=== PATIENT | male | born 1945 | race Caucasian/White ===

== ENCOUNTER 2020-07-06 06:16 | Day surgery (SDC) | payer MEDICARE ==
[2020-07-05 11:30] VITALS: BMI 29.4
[2020-07-06 08:06] LABS: SARS-CoV-2 NAA Rapid Test Not Detected (NotDetected)
[2020-07-06] MEDS ORDERED: Midazolam HCl 2 mg/2 ml Vial ONE (08:09)
[2020-07-06] MEDS ORDERED: Fentanyl 100 MCG/2 ML VIAL ONE (08:09)
[2020-07-06] MEDS ORDERED: Levofloxacin 500 mg/D5W 100 ml Premix Bag ONE (08:16)
--- NOTE | 2020-07-06 09:17 | OP ---
DATE OF PROCEDURE: 07/06/2020 PREOPERATIVE DIAGNOSIS: Lower urinary tract symptoms due to enlarged prostate. POSTOPERATIVE DIAGNOSIS: Lower urinary tract symptoms due to enlarged prostate. PROCEDURE PERFORMED: UroLift utilizing 7 implants. ANESTHESIA: TIVA. COMPLICATIONS: None. ESTIMATED BLOOD LOSS: Minimal. SPECIMEN: None. DESCRIPTION OF PROCEDURE: After informed consent, the patient was taken to the operating room, transferred to the table under his own power. Anesthesia was established. A time-out was performed, showing the correct patient, site, and procedure. Preoperative antibiotics were administered. He was prepped and draped in the lithotomy position. I began by inserting the 20-Thai cystoscope through the urethra noting normal course and caliber of the urethra, into the prostate noting coapting lateral lobes with no significant bladder and neck obstruction. The bladder was entered and systematically examined, noting no mucosal abnormalities. He does have severe trabeculation with end-stage appearance to his bladder. There were no large diverticula. Both ureters were normal in appearance. I began by deploying implants at the bladder neck, left and right. I then proceeded to deploy 2 implants at the verumontanum. He had persistent obstruction at the bladder neck and so, 2 further implants were placed, stacking with the previously placed implants and finally, there was still persistent obstruction in the mid prostate on the right side and so an implant was placed at this location. Total number of implants utilized 7. He was then awoken from anesthesia, transferred back to his hospital bed and taken to PACU in stable condition, where he will undergo a void trial and discharged to home upon recovery. Job ID: [id number]
[2020-07-06] MEDS ORDERED: PROPOFOL 200 MG/20 ML VIAL ONE (09:44)
[2020-07-06] MEDS ORDERED: PHENYLEPHRINE-NS 100 MCG/ML 10 ML SYRINGE ONE (09:44)
[2020-07-06] MEDS ORDERED: Phenazopyridine HCl 100 MG TAB ONE ×2 (10:29→10:32)
[2020-07-06] MEDS ORDERED: Oxybutynin 5 MG TAB ONE ×2 (10:29→10:32)
[2020-07-06] MEDS ORDERED: Ketorolac Tromethamine 30 MG/ML VIAL ONE (10:29)
== END 2020-07-06 12:15 | disposition home or self-care (01) ==
LOC: SDC 06:16
PROVIDERS: ATTEND Urology
PROC: 0T7D8DZ Dilation of Urethra with Intraluminal Device, Via Natural or Artificial Opening Endoscopic (ICD-10-PCS; principal; 2020-07-06)
DX: N40.1 Benign prostatic hyperplasia with lower urinary tract symptoms (principal); N13.8 Other obstructive and reflux uropathy; N32.89 Other specified disorders of bladder; M19.90 Unspecified osteoarthritis, unspecified site; E78.00 Pure hypercholesterolemia, unspecified; I10 Essential (primary) hypertension; G47.30 Sleep apnea, unspecified; I25.10 Atherosclerotic heart disease of native coronary artery without angina pectoris; E78.5 Hyperlipidemia, unspecified; K22.70 Barrett's esophagus without dysplasia; K21.9 Gastro-esophageal reflux disease without esophagitis; Z79.01 Long term (current) use of anticoagulants; Z79.82 Long term (current) use of aspirin; Z79.899 Other long term (current) drug therapy; Z88.6 Allergy status to analgesic agent; Z95.0 Presence of cardiac pacemaker; Z20.822 Contact with and (suspected) exposure to COVID-19
CPT/HCPCS: C9740; U0002; J1885; J1956; J2250; J2704; J3010; L8699

== ENCOUNTER 2022-05-22 19:14 | Inpatient (IN) | payer MEDICARE, OTHER ==
[2022-05-22 20:25] VITALS: BMI 30.3
[2022-05-22] MEDS ORDERED: Acetaminophen 325 MG TAB PO PRN (20:41)
[2022-05-22] MEDS ORDERED: Apixaban 2.5 MG TAB PO SCH (21:15)
[2022-05-22 21:17] LABS: SARS-CoV-2 NAA Rapid Test Not Detected (NotDetected)
[2022-05-22] MEDS ORDERED: Atorvastatin Calcium 40 MG TAB PO SCH (21:30)
[2022-05-22] MEDS ORDERED: Acetaminophen 325 MG TAB ONE (21:50)
[2022-05-23 07:10] LABS: Hemoglobin A1c 5.5 % (4.0-6.0)
[2022-05-23 07:27] LABS: Anion Gap 9 mmol/L (10-20); BUN (Urea Nitrogen) 21 mg/dL (8.4-25.7); Calc. Creatinine Clearance 66 mL/min (70-130); Calcium 8.9 mg/dL (7.8-10.44); Carbon Dioxide 26 mmol/L (23-31); Chloride 109 mmol/L (98-107); Cholesterol 100 mg/dl (< 200 Desired); Estimated GFR 60; Glucose 92 mg/dL (83-110); HDL Cholesterol 33 mg/dL (>60 Neg Risk); LDL Cholesterol, Calculated 51 mg/dL; Sodium 140 mmol/L (136-145); Triglycerides 82 mg/dL (Less than 150)
[2022-05-23] MEDS: Apixaban 2.5 MG TAB PO SCH ×2 (08:48→21:05)
[2022-05-23] MEDS: Aspirin Chewable 81 MG TAB PO SCH (08:48)
[2022-05-23] MEDS: Citalopram 20 MG TAB PO SCH (08:49)
[2022-05-23] MEDS: Multivit, Therapeutic 1 TAB PO SCH (08:49)
[2022-05-23] MEDS ORDERED: Aspirin Chewable 81 MG TAB ONE (08:51)
[2022-05-23] MEDS ORDERED: Latanoprost 0.005% Ophth Soln 2.5 ml Bottle EA EYE SCH (21:00)
[2022-05-23] MEDS ORDERED: Atorvastatin Calcium 40 MG TAB PO SCH (21:00)
[2022-05-24] MEDS ORDERED: Non-Formulary Item 1 EACH (Midodrine [Midodrine] 10 MG Tab) PO SCH (09:00)
[2022-05-24] MEDS ORDERED: Midodrine HCl 5 MG TAB PO SCH ×2 (09:15→15:00)
[2022-05-24] MEDS ORDERED: Aspirin Chewable 81 MG TAB ONE (09:26)
[2022-05-24] MEDS: Apixaban 2.5 MG TAB PO SCH (09:34)
[2022-05-24] MEDS: Aspirin Chewable 81 MG TAB PO SCH (09:35)
[2022-05-24] MEDS: Citalopram 20 MG TAB PO SCH (09:35)
[2022-05-24] MEDS: Multivit, Therapeutic 1 TAB PO SCH (09:36)
[2022-05-24 16:07] VITALS: BP 158/106; TEMP 98
[2022-05-25] MEDS ORDERED: Ferrous Sulfate 325 MG TAB PO SCH (08:00)
[2022-05-25] MEDS ORDERED: Cyanocobalamin (Vitamin B-12) 1,000 MCG TAB PO SCH (09:00)
== END 2022-05-24 16:30 | disposition home or self-care (01) | DRG 69 ==
LOC: ERS 19:14 → ERHOLD 19:59 → OBSVTOIN 05-23 16:26
PROVIDERS: ADMIT Emergency Medicine; ATTEND Student in an Organized Health Care Education/Training Program
DX: G45.9 Transient cerebral ischemic attack, unspecified (principal); Z20.822 Contact with and (suspected) exposure to COVID-19; E78.5 Hyperlipidemia, unspecified; K21.9 Gastro-esophageal reflux disease without esophagitis; G47.33 Obstructive sleep apnea (adult) (pediatric); F32.A Depression, unspecified; Z96.653 Presence of artificial knee joint, bilateral; N18.31 Chronic kidney disease, stage 3a; I48.91 Unspecified atrial fibrillation; I12.9 Hypertensive chronic kidney disease with stage 1 through stage 4 chronic kidney disease, or unspecified chronic kidney disease; I95.1 Orthostatic hypotension; Z95.0 Presence of cardiac pacemaker; Z88.8 Allergy status to other drugs, medicaments and biological substances; Z79.82 Long term (current) use of aspirin; Z79.01 Long term (current) use of anticoagulants; Z79.899 Other long term (current) drug therapy; Z98.890 Other specified postprocedural states; Z82.49 Family history of ischemic heart disease and other diseases of the circulatory system
CPT/HCPCS: 36415; 70551; 80048; 80061; 83036; 84443; G0378; U0002

== ENCOUNTER 2022-06-22 11:42 | Outpatient (CLI) | payer MEDICARE ==
[2022-06-22 12:53] LABS: Hemoglobin 11.6 g/dL (13.5-17.5); Mean Corpuscular HGB CONC 33.6 g/dL (32.0-36.0); Mean Corpuscular Hemoglobin 31.2 pg (27.0-33.0); Mean Corpuscular Volume 92.7 fl (81.2-95.1); Mean Platelet Volume 9.1 fl (7.4-10.4); Platelet Count 386 10x3/uL (150-450); RBC Distribution Width 14.9 % (11.5-14.5); Red Blood Cell (RBC) Count 3.72 10x6/uL (4.32-5.72); White Blood Cell (WBC) Count 9.1 10x3/uL (3.5-10.5)
[2022-06-22 13:11] LABS: INR-International Normal Ratio 1.2; Prothrombin Time 12.8 sec (9.5-12.1)
[2022-06-22 13:25] LABS: Anion Gap 14 mmol/L (10-20); BUN (Urea Nitrogen) 37 mg/dL (8.4-25.7); Calc. Creatinine Clearance 0 mL/min (70-130); Calcium 9.3 mg/dL (7.8-10.44); Carbon Dioxide 20 mmol/L (23-31); Chloride 111 mmol/L (98-107); Estimated GFR 24; Glucose 94 mg/dL (83-110); Potassium 4.7 mmol/L (3.5-5.1); Sodium 140 mmol/L (136-145)
== END 2022-06-22 11:43 | disposition home or self-care (01) ==
LOC: LABBT 11:42
PROVIDERS: ATTEND Urology
DX: Z01.818 Encounter for other preprocedural examination (principal); N20.1 Calculus of ureter
CPT/HCPCS: 80048; 85027; 85610; 85730; 87086; 93005; 93010

== ENCOUNTER 2022-06-26 06:05 | Day surgery (SDC) | payer MEDICARE, OTHER ==
[2022-06-22 14:11] VITALS: BMI 29.4
[2022-06-26] MEDS ORDERED: fentaNYL PF 100 MCG/2 ML SYRINGE ONE (09:11)
[2022-06-26] MEDS ORDERED: CEFAZOLIN 2 GM VIAL ONE (09:17)
[2022-06-26] MEDS ORDERED: Sodium Chloride 0.9% 100 ML ONE (09:18)
[2022-06-26] MEDS ORDERED: ePHEDrine 50 MG/ML VIAL ONE (09:25)
[2022-06-26] MEDS ORDERED: Dexamethasone 20 MG/5 ML VIAL ONE (09:25)
[2022-06-26] MEDS ORDERED: PHENYLEPHRINE-NS 100 MCG/ML 10 ML SYRINGE ONE (09:25)
[2022-06-26] MEDS ORDERED: Ondansetron PF 4 MG/2 ML Vial ONE (09:25)
[2022-06-26] MEDS ORDERED: Vancomycin HCl 500 MG in Sodium Chloride 0.9% 100 ML IVPB SCH (09:30)
[2022-06-26] MEDS ORDERED: Iopamidol 15 ML ONE (10:18)
[2022-06-26 11:07] LABS: Anion Gap 13 mmol/L (10-20); BUN (Urea Nitrogen) 34 mg/dL (8.4-25.7); Calc. Creatinine Clearance 35 mL/min (70-130); Calcium 8.9 mg/dL (7.8-10.44); Carbon Dioxide 21 mmol/L (23-31); Chloride 108 mmol/L (98-107); Estimated GFR 29; Glucose 97 mg/dL (83-110); Potassium 4.5 mmol/L (3.5-5.1); Sodium 137 mmol/L (136-145)
== END 2022-06-26 12:30 | disposition home or self-care (01) ==
LOC: SDC 06:05
PROVIDERS: ATTEND Urology
PROC: 0TCB8ZZ Extirpation of Matter from Bladder, Via Natural or Artificial Opening Endoscopic (ICD-10-PCS; principal; 2022-06-26)
PROC: BT1DZZZ Fluoroscopy of Right Kidney, Ureter and Bladder (ICD-10-PCS; 2022-06-26)
DX: N21.0 Calculus in bladder (principal); N13.8 Other obstructive and reflux uropathy; I10 Essential (primary) hypertension; K21.9 Gastro-esophageal reflux disease without esophagitis; Z86.73 Personal history of transient ischemic attack (TIA), and cerebral infarction without residual deficits; Z79.01 Long term (current) use of anticoagulants; Z79.82 Long term (current) use of aspirin; Z79.899 Other long term (current) drug therapy; Z88.6 Allergy status to analgesic agent
CPT/HCPCS: 36415; 74420; 80048; 82365; 88300; J1100; J2405; J3370; J3490; Q9967

== ENCOUNTER 2023-03-17 19:38 | Inpatient (IN) | payer MEDICARE, OTHER ==
[2023-03-17] MEDS ORDERED: Ondansetron ODT 4 MG TAB PO PRN (21:05)
[2023-03-17] MEDS ORDERED: Acetaminophen 325 MG TAB PO PRN (21:05)
[2023-03-17] MEDS ORDERED: Ondansetron PF 4 MG/2 ML Vial IVP PRN (21:05)
[2023-03-18 02:21] VITALS: BMI 29.9
[2023-03-18 05:29] LABS: #Basophils 0.1 thou/uL (0.0-0.2); #Eosinphils 0.5 thou/uL (0.0-0.7); #Monocytes 0.8 thou/uL (0.11-0.59); #Neutrophils 4.7 thou/uL (1.40-6.50); %Basophils 0.9 % (0.0-1.0); %Eosinophils 5.4 % (0.0-10.0); %Lymphocytes 31.8 % (21.0-51.0); %Monocytes 9.3 % (0.0-10.0); %Neutrophils 52.4 % (42.0-75.0); Hematocrit 39.5 % (42.0-52.0); Hemoglobin 13.4 g/dL (14.0-18.0); Mean Corpuscular HGB CONC 33.9 g/dL (32.0-36.0); Mean Corpuscular Volume 97.3 fl (78.0-98.0); Platelet Count 220 10x3/uL (130-400); RBC Distribution Width 13.2 % (11.5-14.5); Red Blood Cell (RBC) Count 4.06 mill/uL (4.70-6.10)
[2023-03-18 06:11] LABS: Magnesium 2.1 mg/dL (1.6-2.6); Phosphorus 3.9 mg/dL (2.3-4.7)
[2023-03-18 06:17] LABS: ALT (SGPT) 15 U/L (8-55); AST (SGOT) 19 U/L (5-34); Albumin 3.9 g/dL (3.4-4.8); Alkaline Phosphatase 70 U/L (40-110); Anion Gap 14 mmol/L (10-20); BUN (Urea Nitrogen) 27 mg/dL (8.4-25.7); Bilirubin, Total 0.8 mg/dL (0.2-1.2); Calc. Creatinine Clearance 55 mL/min (70-130); Calcium 9.2 mg/dL (7.8-10.44); Carbon Dioxide 22 mmol/L (23-31); Cardiac Risk 2.5 (Less than 4.5); Chloride 111 mmol/L (98-107); Cholesterol 97 mg/dl (< 200 Desired); Estimated GFR 49; Globulin 2.7 g/dL (2.4-3.5); Glucose 96 mg/dL (83-110); HDL Cholesterol 39 mg/dL (>60 Neg Risk); LDL Cholesterol, Calculated 46 mg/dL; Potassium 4.3 mmol/L (3.5-5.1); Protein, Total 6.6 g/dL (5.8-8.1); Sodium 143 mmol/L (136-145); Triglycerides 60 mg/dL (Less than 150)
[2023-03-18] MEDS: Ferrous Sulfate 325 MG TAB PO SCH (09:08)
[2023-03-18] MEDS: Aspirin Chewable 81 MG TAB PO SCH (09:09)
[2023-03-18] MEDS: Fludrocortisone Acetate 0.1 MG TAB PO SCH (09:09)
[2023-03-18] MEDS: Citalopram 20 MG TAB PO SCH (09:09)
[2023-03-18] MEDS: Multivit, Therapeutic 1 TAB PO SCH (09:12)
[2023-03-18] MEDS: Cyanocobalamin (Vitamin B-12) 1,000 MCG TAB PO SCH (09:12)
[2023-03-18] MEDS: Atorvastatin Calcium 40 MG TAB PO SCH (20:49)
[2023-03-19 06:06] LABS: #Basophils 0.1 thou/uL (0.0-0.2); #Eosinphils 0.5 thou/uL (0.0-0.7); #Monocytes 0.9 thou/uL (0.11-0.59); %Basophils 0.9 % (0.0-1.0); %Eosinophils 5.5 % (0.0-10.0); %Lymphocytes 27.6 % (21.0-51.0); %Monocytes 9.7 % (0.0-10.0); %Neutrophils 56.1 % (42.0-75.0); Hemoglobin 13.5 g/dL (14.0-18.0); Mean Corpuscular HGB CONC 33.8 g/dL (32.0-36.0); Mean Corpuscular Hemoglobin 33.1 pg (27.0-31.0); Mean Platelet Volume 9.2 fL (7.4-10.4); Platelet Count 213 10x3/uL (130-400); RBC Distribution Width 13.2 % (11.5-14.5); Red Blood Cell (RBC) Count 4.08 mill/uL (4.70-6.10); White Blood Cell (WBC) Count 8.9 10x3/uL (4.8-10.8)
[2023-03-19 06:37] LABS: ALT (SGPT) 14 U/L (8-55); AST (SGOT) 14 U/L (5-34); Albumin 3.9 g/dL (3.4-4.8); Alkaline Phosphatase 67 U/L (40-110); Anion Gap 13 mmol/L (10-20); BUN (Urea Nitrogen) 25 mg/dL (8.4-25.7); Bilirubin, Total 0.8 mg/dL (0.2-1.2); Calc. Creatinine Clearance 59 mL/min (70-130); Calcium 8.9 mg/dL (7.8-10.44); Carbon Dioxide 26 mmol/L (23-31); Chloride 108 mmol/L (98-107); Estimated GFR 52; Globulin 2.6 g/dL (2.4-3.5); Glucose 98 mg/dL (83-110); Protein, Total 6.5 g/dL (5.8-8.1); Sodium 143 mmol/L (136-145)
[2023-03-19] MEDS: Ferrous Sulfate 325 MG TAB PO SCH (08:31)
[2023-03-19] MEDS: Aspirin Chewable 81 MG TAB PO SCH (08:31)
[2023-03-19] MEDS: Multivit, Therapeutic 1 TAB PO SCH (08:32)
[2023-03-19] MEDS: Fludrocortisone Acetate 0.1 MG TAB PO SCH (08:32)
[2023-03-19] MEDS: Citalopram 20 MG TAB PO SCH (08:32)
[2023-03-19] MEDS: Cyanocobalamin (Vitamin B-12) 1,000 MCG TAB PO SCH (08:32)
[2023-03-19] MEDS: Midodrine HCl 5 MG TAB PO SCH ×3 (08:49→21:05)
[2023-03-19] MEDS: Atorvastatin Calcium 40 MG TAB PO SCH (21:05)
[2023-03-20 05:31] LABS: #Basophils 0.1 thou/uL (0.0-0.2); #Eosinphils 0.5 thou/uL (0.0-0.7); #Neutrophils 5.9 thou/uL (1.40-6.50); %Basophils 0.8 % (0.0-1.0); %Eosinophils 4.7 % (0.0-10.0); %Lymphocytes 21.5 % (21.0-51.0); %Monocytes 10.1 % (0.0-10.0); %Neutrophils 62.6 % (42.0-75.0); Hematocrit 40.5 % (42.0-52.0); Hemoglobin 13.5 g/dL (14.0-18.0); Mean Corpuscular HGB CONC 33.3 g/dL (32.0-36.0); Mean Corpuscular Hemoglobin 32.6 pg (27.0-31.0); Mean Corpuscular Volume 97.8 fl (78.0-98.0); Mean Platelet Volume 9.3 fL (7.4-10.4); Platelet Count 222 10x3/uL (130-400); Red Blood Cell (RBC) Count 4.14 mill/uL (4.70-6.10); White Blood Cell (WBC) Count 9.5 10x3/uL (4.8-10.8)
[2023-03-20 05:57] LABS: ALT (SGPT) 14 U/L (8-55); AST (SGOT) 16 U/L (5-34); Albumin 3.9 g/dL (3.4-4.8); Alkaline Phosphatase 65 U/L (40-110); Anion Gap 13 mmol/L (10-20); BUN (Urea Nitrogen) 25 mg/dL (8.4-25.7); Bilirubin, Total 0.8 mg/dL (0.2-1.2); Calc. Creatinine Clearance 61 mL/min (70-130); Calcium 8.8 mg/dL (7.8-10.44); Carbon Dioxide 23 mmol/L (23-31); Chloride 108 mmol/L (98-107); Estimated GFR 55; Globulin 2.6 g/dL (2.4-3.5); Glucose 95 mg/dL (83-110); Potassium 3.9 mmol/L (3.5-5.1); Protein, Total 6.5 g/dL (5.8-8.1); Sodium 140 mmol/L (136-145)
[2023-03-20] MEDS: Ferrous Sulfate 325 MG TAB PO SCH (09:47)
[2023-03-20] MEDS: Aspirin Chewable 81 MG TAB PO SCH (09:47)
[2023-03-20] MEDS: Multivit, Therapeutic 1 TAB PO SCH (09:48)
[2023-03-20] MEDS: Midodrine HCl 5 MG TAB PO SCH ×2 (09:48→15:22)
[2023-03-20] MEDS: Citalopram 20 MG TAB PO SCH (09:48)
[2023-03-20] MEDS: Cyanocobalamin (Vitamin B-12) 1,000 MCG TAB PO SCH (09:48)
[2023-03-20] MEDS: Fludrocortisone Acetate 0.1 MG TAB PO SCH (09:48)
[2023-03-20 11:19] VITALS: TEMP 98.1
[2023-03-20 15:28] VITALS: BP 128/78
[2023-03-20] MEDS ORDERED: Clopidogrel Bisulfate 75 MG TAB PO SCH (16:38)
== END 2023-03-20 19:05 | disposition home or self-care (01) | DRG 65 ==
LOC: 2SE 21:00
PROVIDERS: ADMIT Family Medicine; ATTEND Family Medicine
PROC: 4A00X4Z Measurement of Central Nervous Electrical Activity, External Approach (ICD-10-PCS; principal; 2023-03-20)
DX: I63.9 Cerebral infarction, unspecified (principal); I47.20 Ventricular tachycardia, unspecified; I48.21 Permanent atrial fibrillation; Z88.8 Allergy status to other drugs, medicaments and biological substances; Z79.82 Long term (current) use of aspirin; Z79.899 Other long term (current) drug therapy; G47.33 Obstructive sleep apnea (adult) (pediatric); Z95.0 Presence of cardiac pacemaker; K21.9 Gastro-esophageal reflux disease without esophagitis; F32.A Depression, unspecified; Z90.49 Acquired absence of other specified parts of digestive tract; Z96.652 Presence of left artificial knee joint; Z98.890 Other specified postprocedural states; E78.5 Hyperlipidemia, unspecified; J30.2 Other seasonal allergic rhinitis
CPT/HCPCS: 36415; 70551; 80053; 80061; 83036; 83735; 84100; 84443; 85025; 93306; 95711

== ENCOUNTER 2024-12-19 11:54 | Outpatient (CLI) | payer MEDICARE, OTHER ==
[2024-12-19 13:12] LABS: #Basophils 0.06 10x3/uL (0.0-0.2); #Eosinophils 0.27 10x3/uL (0.0-0.7); #Monocytes 0.88 10x3/uL (0.11-0.59); #Neutrophils 5.82 10x3/uL (1.40-6.50); %Basophils 0.6 % (0.0-1.0); %Eosinophils 2.9 % (0.0-10.0); %Lymphocytes 23.9 % (21.0-51.0); %Monocytes 9.5 % (0.0-10.0); %Neutrophils 62.9 % (42.0-75.0); Hematocrit 38.0 % (42.0-52.0); Hemoglobin 12.9 g/dL (14.0-18.0); Mean Corpuscular Hemoglobin 32.4 pg (27.0-31.0); Mean Corpuscular Volume 95.5 fL (78.0-98.0); Platelet Count 225 10x3/uL (130-400); Red Blood Cell (RBC) Count 3.98 mill/uL (4.70-6.10); White Blood Cell (WBC) Count 9.27 10x3/uL (4.8-10.8)
[2024-12-19 13:24] LABS: INR-International Normal Ratio 1.3; PTT 31.6 sec (22.9-36.1); Prothrombin Time 16.2 sec (12.0-14.7)
[2024-12-19 13:38] LABS: Anion Gap 11 mmol/L (10-20); BUN (Urea Nitrogen) 24 mg/dL (8.4-25.7); Calc. Creatinine Clearance 0 mL/min (70-130); Calcium 9.4 mg/dL (7.8-10.44); Carbon Dioxide 23 mmol/L (23-31); Chloride 109 mmol/L (98-107); Glucose 85 mg/dL (83-110); Potassium 4.0 mmol/L (3.5-5.1); Sodium 139 mmol/L (136-145)
[2024-12-19 14:01] LABS: Bacteria/HPF 4+ HPF (None Seen); Glucose, Urine (Dipstick) 70 mg/dL (Negative); Leukocyte 500 Leu/uL (Negative); Protein, Urine (Dipstick) 10 mg/dL (Neg-Trace); Specific Gravity, Urine 1.017 (1.002-1.036); WBC/HPF Greater than 50 HPF (0-3)
== END 2024-12-19 11:55 | disposition home or self-care (01) ==
LOC: LABBT 11:54
PROVIDERS: ATTEND Urology
DX: Z01.818 Encounter for other preprocedural examination (principal); N21.0 Calculus in bladder; N40.0 Benign prostatic hyperplasia without lower urinary tract symptoms
CPT/HCPCS: 80048; 81001; 85025; 85610; 85730; 87077; 87086; 87186; 93005; 93010

== ENCOUNTER 2025-01-03 13:08 | Observation (INO) | payer MEDICARE, OTHER ==
[~2025-01-03 13:08] MED LIST: Iopamidol 370 76% 100 ML VIAL ONE
[2025-01-03 13:37] LABS: #Basophils 0.09 10x3/uL (0.0-0.2); #Eosinophils 0.30 10x3/uL (0.0-0.7); #Monocytes 0.94 10x3/uL (0.11-0.59); #Neutrophils 6.61 10x3/uL (1.40-6.50); %Basophils 0.9 % (0.0-1.0); %Eosinophils 2.8 % (0.0-10.0); %Lymphocytes 24.3 % (21.0-51.0); %Monocytes 8.9 % (0.0-10.0); %Neutrophils 62.8 % (42.0-75.0); Hematocrit 39.5 % (42.0-52.0); Hemoglobin 13.1 g/dL (14.0-18.0); Mean Corpuscular Hemoglobin 32.0 pg (27.0-31.0); Mean Corpuscular Volume 96.6 fL (78.0-98.0); Platelet Count 205 10x3/uL (130-400); Red Blood Cell (RBC) Count 4.09 mill/uL (4.70-6.10); White Blood Cell (WBC) Count 10.53 10x3/uL (4.8-10.8)
[2025-01-03] MEDS ORDERED: Acetaminophen 500 MG TAB ONE (14:00)
[2025-01-03 14:10] LABS: ALT (SGPT) 13 U/L (Less than 45); AST (SGOT) 28 U/L (11-34); Albumin 3.7 g/dL (3.1-4.5); Alkaline Phosphatase 65 U/L (40-110); Anion Gap 15 mmol/L (10-20); BUN (Urea Nitrogen) 21 mg/dL (8.4-25.7); Bilirubin, Total 1.3 mg/dL (0.3-1.2); Calc. Creatinine Clearance 0 mL/min (70-130); Calcium 9.4 mg/dL (7.8-10.44); Carbon Dioxide 21 mmol/L (23-31); Chloride 109 mmol/L (98-107); Globulin 3.2 g/dL (2.4-3.5); Glucose 97 mg/dL (83-110); Potassium 4.3 mmol/L (3.5-5.1); Sodium 141 mmol/L (136-145)
[2025-01-03 23:16] LABS: Magnesium 1.9 mg/dL (1.6-2.6)
[2025-01-04 04:34] LABS: #Basophils 0.06 10x3/uL (0.0-0.2); #Eosinophils 0.35 10x3/uL (0.0-0.7); #Monocytes 0.92 10x3/uL (0.11-0.59); #Neutrophils 3.98 10x3/uL (1.40-6.50); %Basophils 0.7 % (0.0-1.0); %Eosinophils 4.4 % (0.0-10.0); %Lymphocytes 33.7 % (21.0-51.0); %Monocytes 11.5 % (0.0-10.0); %Neutrophils 49.6 % (42.0-75.0); Hematocrit 36.5 % (42.0-52.0); Hemoglobin 12.1 g/dL (14.0-18.0); Mean Corpuscular Hemoglobin 31.7 pg (27.0-31.0); Mean Corpuscular Volume 95.5 fL (78.0-98.0); Platelet Count 195 10x3/uL (130-400); Red Blood Cell (RBC) Count 3.82 mill/uL (4.70-6.10); White Blood Cell (WBC) Count 8.02 10x3/uL (4.8-10.8)
[2025-01-04 05:05] LABS: Anion Gap 13 mmol/L (10-20); BUN (Urea Nitrogen) 25 mg/dL (8.4-25.7); Calc. Creatinine Clearance 0 mL/min (70-130); Calcium 8.7 mg/dL (7.8-10.44); Carbon Dioxide 22 mmol/L (23-31); Chloride 110 mmol/L (98-107); Glucose 92 mg/dL (83-110); Magnesium 2.0 mg/dL (1.6-2.6); Potassium 4.0 mmol/L (3.5-5.1); Sodium 141 mmol/L (136-145)
[2025-01-04] MEDS ORDERED: IRON 18 MG PO SCH (09:00)
[2025-01-04 09:23] VITALS: BMI 27.6
[2025-01-04 10:25] VITALS: TEMP 97.7
[2025-01-04] MEDS: Aspirin Chewable 81 MG TAB PO SCH (10:25)
[2025-01-04] MEDS: Multivitamin W/ Minerals 1 TAB PO SCH (10:27)
[2025-01-04 15:26] VITALS: BP 143/79
== END 2025-01-04 16:50 | disposition home or self-care (01) ==
LOC: ERS 13:08 → 2NO 19:35
PROVIDERS: ADMIT Family Medicine; ATTEND Student in an Organized Health Care Education/Training Program
DX: I95.9 Hypotension, unspecified (principal); I10 Essential (primary) hypertension; I25.10 Atherosclerotic heart disease of native coronary artery without angina pectoris; E78.5 Hyperlipidemia, unspecified; K21.9 Gastro-esophageal reflux disease without esophagitis; Z86.73 Personal history of transient ischemic attack (TIA), and cerebral infarction without residual deficits; Z95.0 Presence of cardiac pacemaker; Z98.49 Cataract extraction status, unspecified eye; Z90.49 Acquired absence of other specified parts of digestive tract; Z98.890 Other specified postprocedural states; Z88.6 Allergy status to analgesic agent; Z79.02 Long term (current) use of antithrombotics/antiplatelets; Z79.899 Other long term (current) drug therapy
CPT/HCPCS: 70450; 71045; 71275; 74174; 80048; 80053; 83735 ×2; 84100 ×2; 84484 ×2; 85025 ×2; 85379; 93005; 97116; 97530; G0378 ×3; J7030; Q9967; 36415; 96360